=== PATIENT | female | born 1970 | race Caucasian/White ===

== ENCOUNTER 2019-09-08 10:59 | Inpatient (IN) | payer MEDICAID, SELFPAY ==
[2019-09-08 11:00] VITALS: BP 130/83; PULSE 71; RESP 18; TEMP 36.9; O2SAT 100; BMI 22.3
[2019-09-08 11:12] VITALS: BP 140/84; PULSE 72; RESP 16; O2SAT 100
[2019-09-08 11:18] LABS: Basophils # 0.1 10^3/uL (0.0-0.1); Basophils % 0.7 %; Eosinophils # 0.2 10^3/uL (0.0-0.8); Eosinophils % 2.2 %; Hemoglobin 13.7 g/dL (11.5-15.3); Lymphocytes # 2.8 10^3/uL (0.8-4.8); Lymphocytes % 31.5 %; Mean Corpuscular HGB Conc 31.9 g/dL (30.0-36.0); Mean Corpuscular Hemoglobin 29.3 pg (28.0-34.0); Mean Corpuscular Volume 92.1 fL (81-99); Mean Platelet Volume 9.6 fL (7.4-10.4); Monocytes # 0.7 10^3/uL (0.2-0.9); Monocytes % 8.2 %; Neutrophils # 5.1 10^3/uL (1.8-7.7); Nucleated Red Blood Cells % 0 %; Platelet Count 351 10^3/cmm (130-400); Red Blood Count 4.67 10^6/uL (4.1-5.3); Red Cell Distribution Width 13.4 % (12.1-15.1)
--- NOTE | 2019-09-08 11:31 | ED_ITS ---
HPI - Psych General: Chief Complaint: Psychiatric Symptoms Stated Complaint: SI NO PLAN Source: patient Mode of arrival: EMS Limitations: no limitations History of Present Illness: HPI Narrative: 49-year-old female patient who presents to the emergency department with suicidal ideations. She says for the last week or so she has been having visual hallucinations and is unable to tell what is real and what is not. She had been taking methamphetamine but has stopped about a week ago. She is depressed and would like some help. MD complaint: suicidal ideation and feels depressed Duration: constant and getting worse Exacerbating factors: drug use Context: recent drug abuse (Methamphetamine) Associated psychiatric symptoms: depression, suicidal ideation and visual hallucinations Treatments prior to arrival: none If self harm: admits thoughts of self harm Review of Systems General: Reports: 10 or more systems reviewed and unremarkable except in HPI and below Const: Denies: fever(s), chills or body aches Eyes: Denies: change in vision or blurry vision ENMT: Denies: throat pain, enlarged tonsils, odynophagia, hoarseness, mouth pain or swelling of lips/tongue Card: Denies: palpitations, irregular heart rhythm, edema or swelling of feet/ankles Resp: Denies: dyspnea, productive cough or non-productive cough GI: Denies: abdominal pain, nausea or vomiting : Denies: flank pain, difficulty voiding, dysuria, urinary frequency, urinary urgency or urinary hesitancy Musc: Denies: neck pain, back pain or extremity swelling Skin/Breast: Denies: rash, pruritus or erythema Neuro: Denies: headache(s), numbness in extremities or weakness in extremities Endo: Denies: polyuria, polydipsia or tired all the time [facility] ED PFSH: Social History (Updated 09/08/19 @ 09:43 by Em Mcdonnell LPN) Smoking and tobacco status: current every day smoker Alcohol intake: unknown Desire information about substance/drug rehabilitation?: Yes Last substance use date: 09/04/19 Other details last substance use: meth Physical Exam Const: COMMON NORMALS: no acute distress, average body habitus, patient oriented x3, no limitations, healthy appearing, alert and well nourished HENMT: COMMON NORMALS: normocephalic, atraumatic and moist oral mucous me mbranes HEAD & SCALP: normocephalic and atraumatic Neck/C-Spine: COMMON NORMALS: no JVD Chest: COMMONS NORMALS: normal inspection of the chest and normal palpation of entire chest wall Resp: COMMON NORMALS: normal respiratory effort, No retractions, No use of accessory muscles, clear to auscultation bilaterally and percussion normal AUSCULTATION: clear to auscultation bilaterally PERCUSSION: percussion normal Cardio: COMMON NORMALS: no JVD, regular rate, regular rhythm, S1 normal heart sound present, S2 normal heart sound present, No gallops present (Cardio), No clicks present (Cardio), No murmurs present (Cardio), No rub (Cardio) and Peripheral pulses 2+ throughout RATE: regular rate RHYTHM: regular rhythm HEART SOUNDS: S1 normal heart sound present and S2 normal heart sound present PERIPHERAL PULSES: Peripheral pulses 2+ throughout GI: COMMON NORMALS: Normal to inspection, nondistended, normoactive bowel sounds present, Soft to palpation, non-tender, No hepatosplenomegaly present, no masses and no bruits PALPATION: Yes Soft to palpation and Yes No hepatosplenomegaly present : COMMON NORMALS: Yes no CVA tenderness BLADDER/KIDNEY EXAM: Yes no CVA tenderness Back/Pelvis: COMMON NORMALS: no CVA tenderness Extremity: COMMON NORMALS: normal to inspection, full ROM, capillary refill normal, no calf tenderness and no pedal edema Neuro: COMMON NORMALS: patient oriented x3 SENSORIUM/ORIENTATION: Yes alert Psych: COMMON NORMALS: cooperative APPEARANCE: Yes grossly normal ATTITUDE: Yes calm SPEECH: Yes slow MOOD & AFFECT: Yes depressed mood MDM - Psych MDM Narrative: Medical decision making narrative: 49-year-old female patient who presents with suicidal ideation. She is also having visual hallucination. She has been medically cleared and is being admitted to the neuropsychiatric unit for further evaluation and management. Lab Data: Labs: Lab Results 09/08/19 09/08/19 09/08/19 Range/Units 11:12 11:12 11:12 WBC 9.0 (4.0-10.0) 10^3/ uL RBC 4.67 (4.1-5.3) 10^6/u L Hgb 13.7 (11.5-15.3) g/dL Hct 43.0 (37.0-47.0) % MCV 92.1 (81-99) fL MCH 29.3 (28.0-34.0) pg MCHC 31.9 (30.0-36.0) g/dL RDW 13.4 (12.1-15.1) % Plt Count 351 (130-400) 10^3/c mm MPV 9.6 (7.4-10.4) fL Neut % (Auto) 57.0 % Lymph % (Auto) 31.5 % [place] % (Auto) 8.2 % Eos % (Auto) 2.2 % Baso % (Auto) 0.7 % Neut # (Auto) 5.1 (1.8-7.7) 10^3/u L Lymph # (Auto) 2.8 (0.8-4.8) 10^3/u L [place] # (Auto) 0.7 (0.2-0.9) 10^3/u L Eos # (Auto) 0.2 (0.0-0.8) 10^3/u L Baso # (Auto) 0.1 (0.0-0.1) 10^3/u L Nucleated RBC % (a uto) 0 % Nucleated RBCs # 0.0 /100WBC Sodium 139 (136-145) mmol/L Potassium 3.8 (3.5-5.1) mmol/L Chloride 102 (98-107) mmol/L Carbon Dioxide 28 (22-29) mmol/L Anion Gap 12.8 (5-19) BUN 10 (6-20) mg/dL Creatinine 0.6 (0.5-0.9) mg/dL GFR Calculation 106.7 (90-130) mL/min Glucose 72 (65-115) mg/dL Calculated Osmolal ity 283 L (285-295) mOsm/k g Calcium 8.8 (8.5-10.5) mg/dL Total Bilirubin 0.2 (0.15-1.2) mg/dL AST 15 (0-32) U/L ALT 13 (0-33) U/L Alkaline Phosphata se 48 (35-105) IU/L Total Protein 6.4 L (6.6-8.7) g/dL Albumin 4.2 (3.5-5.2) g/dL Globulin 2.2 (1.3-4.6) g/dL HCG, Qual Negative (Negative) Urine Color (Yellow) Urine Appearance (CLEAR) Urine pH (5-7) Ur Specific Gravit y (1.005-1.030) Urine Protein (Negative) Urine Glucose (UA) (Normal) Urine Ketones (Negative) Urine Blood (Negative) Urine Nitrate (Negative) Urine Bilirubin (NEGATIVE) Urine Urobilinogen (Negative) mg/dL Ur Leukocyte Fabi ase (Negative) Salicylates < 0.3 L (3-10) mg/dL Urine Opiates Scre en (Negative) ng/mL Acetaminophen < 5.0 L (10-30) ug/mL Ur Barbiturates Sc reen (Negative) ng/mL Ur Phencyclidine S crn (Negative) ng/mL Ur Amphetamines Sc reen (Negative) ng/mL U Benzodiazepines Scrn (Negative) ng/mL Urine Cocaine Scre en (Negative) ng/mL U Marijuana (THC) Screen (Negative) ng/mL Ethyl Alcohol < 10 (0-10) mg/dL 09/08/19 09/08/19 Range/Units 14:53 14:53 WBC (4.0-10.0) 10^3/ uL RBC (4.1-5.3) 10^6/u L Hgb (11.5-15.3) g/dL Hct (37.0-47.0) % MCV (81-99) fL MCH (28.0-34.0) pg MCHC (30.0-36.0) g/dL RDW (12.1-15.1) % Plt Count (130-400) 10^3/c mm MPV (7.4-10.4) fL Neut % (Auto) % Lymph % (Auto) % [place] % (Auto) % Eos % (Auto) % Baso % (Auto) % Neut # (Auto) (1.8-7.7) 10^3/u L Lymph # (Auto) (0.8-4.8) 10^3/u L [place] # (Auto) (0.2-0.9) 10^3/u L Eos # (Auto) (0.0-0.8) 10^3/u L Baso # (Auto) (0.0-0.1) 10^3/u L Nucleated RBC % (a uto) % Nucleated RBCs # /100WBC Sodium (136-145) mmol/L Potassium (3.5-5.1) mmol/L Chloride (98-107) mmol/L Carbon Dioxide (22-29) mmol/L Anion Gap (5-19) BUN (6-20) mg/dL Creatinine (0.5-0.9) mg/dL GFR Calculation (90-130) mL/min Glucose (65-115) mg/dL Calculated Osmolal ity (285-295) mOsm/k g Calcium (8.5-10.5) mg/dL Total Bilirubin (0.15-1.2) mg/dL AST (0-32) U/L ALT (0-33) U/L Alkaline Phosphata se (35-105) IU/L Total Protein (6.6-8.7) g/dL Albumin (3.5-5.2) g/dL Globulin (1.3-4.6) g/dL HCG, Qual (Negative) Urine Color Yellow (Yellow) Urine Appearance Hazy A (CLEAR) Urine pH 9 H (5-7) Ur Specific Gravit y 1.015 (1.005-1.030) Urine Protein Neg (Negative) Urine Glucose (UA) Norm (Normal) Urine Ketones Negative (Negative) Urine Blood Neg (Negative) Urine Nitrate Negative (Negative) Urine Bilirubin Neg (NEGATIVE) Urine Urobilinogen Norm (Negative) mg/dL Ur Leukocyte Fabi ase Negative (Negative) Salicylates (3-10) mg/dL Urine Opiates Scre en Negative (Negative) ng/mL Acetaminophen (10-30) ug/mL Ur Barbiturates Sc reen Negative (Negative) ng/mL Ur Phencyclidine S crn Negative (Negative) ng/mL Ur Amphetamines Sc reen Negative (Negative) ng/mL U Benzodiazepines Scrn Negative (Negative) ng/mL Urine Cocaine Scre en Negative (Negative) ng/mL U Marijuana (THC) Screen Positive H (Negative) ng/mL Ethyl Alcohol (0-10) mg/dL Discharge Plan Discharge Patient Disposition: Admitted As Inpatient Admit Provider: Rodrigo Correia Clinical Impression: Suicidal ideation, Hallucinations, visual Condition: Stable Coding Level of Care Code ED Lead Sustainability Specialist for Chg Fwd Exam Comprehensive
[2019-09-08 11:33] LABS: HCG, Serum Qual Negative (Negative)
[2019-09-08 11:34] LABS: Alanine Aminotransferase 13 U/L (0-33); Albumin Level 4.2 g/dL (3.5-5.2); Alkaline Phosphatase 48 IU/L (35-105); Anion Gap 12.8 (5-19); Aspartate Amino Transferase 15 U/L (0-32); Blood Urea Nitrogen 10 mg/dL (6-20); Calcium 8.8 mg/dL (8.5-10.5); Carbon Dioxide 28 mmol/L (22-29); Chloride 102 mmol/L (98-107); Globulin 2.2 g/dL (1.3-4.6); Glomerular Filtration Rate 106.7 mL/min (90-130); Glucose 72 mg/dL (65-115); Osmolality Calculated 283 mOsm/kg (285-295); Potassium 3.8 mmol/L (3.5-5.1); Sodium 139 mmol/L (136-145); Total Bilirubin 0.2 mg/dL (0.15-1.2); Total Protein 6.4 g/dL (6.6-8.7)
[2019-09-08 11:40] LABS: Acetaminophen < 5.0 ug/mL (10-30); Alcohol Level < 10 mg/dL (0-10); Salicylate < 0.3 mg/dL (3-10)
[2019-09-08] MEDS: ondansetron 4 MG Tablet PO (14:36)
[2019-09-08] MEDS: LORazepam 1 mg Tablet PO (14:44)
--- NOTE | 2019-09-08 14:53 | PC.NURSE ---
Second urine sample collected and sent to lab. Lab reported the first urine sample was not in lab. Alexa from lab reported the first urine sample was set in the window at the same time the blood was set in the window in lab.
[2019-09-08 14:59] LABS: Add Urine Microscopic? NO
[2019-09-08 15:02] LABS: Bilirubin Urine Neg (NEGATIVE); Blood Urine Neg (Negative); Glucose Urine UA Norm (Normal); Ketones Urine Negative (Negative); Leukocyte Esterase Urine Negative (Negative); Nitrate Urine Negative (Negative); Protein Urine Neg (Negative); Specific Gravity, Urine 1.015 (1.005-1.030); Urine Appearance Hazy (CLEAR); Urine Color Yellow (Yellow); Urobilinogen Urine Norm (Negative); pH Urine 9 (5-7)
[2019-09-08 15:10] LABS: Amphetamines Screen Urine Negative (Negative); Barbiturates Screen Urine Negative (Negative); Benzodiazepines Screen Urine Negative (Negative); Cocaine Screen Urine Negative (Negative); Opiate Screen Urine Negative (Negative); PCP Screen Urine Negative (Negative); THC Screen Urine Positive (Negative)
[2019-09-08 15:37] VITALS: BP 125/83; PULSE 72; RESP 18; TEMP 36.9; O2SAT 99
[2019-09-08 16:02] VITALS: BP 119/86; PULSE 71; RESP 18; O2SAT 100
[2019-09-08] MEDS: hyDROXYzine 25 mg Capsule 50 MG PO (20:43)
[2019-09-08 21:33] VITALS: BP 111/75; PULSE 71; RESP 20; TEMP 36.9; O2SAT 100
[2019-09-08] MEDS: loperamide 2 mg Capsule PO (22:42)
[2019-09-08] MEDS: trazodone 50 mg Tablet PO (22:42)
[2019-09-09 06:00] VITALS: BP 101/67; PULSE 74; RESP 19; TEMP 36.7; O2SAT 98
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
[2019-09-09 13:23] VITALS: BP 96/62; PULSE 71; RESP 18; TEMP 37.2; O2SAT 97
[2019-09-09] MEDS: hyDROXYzine 25 mg Capsule 50 MG PO ×2 (14:35→20:47)
[2019-09-09] MEDS: nicotine 2 mg Gum BUCCAL (14:36)
--- NOTE | 2019-09-09 14:36 | PC.NURSE ---
Addendum entered by Ruthie Mckee LPN 09/09/19 17:14: prn med effective no further c/o anxiety Original Note: PRN VISTARIL 50 MG GIVEN PO PER PT C/O ANXIETY
[2019-09-09 19:39] VITALS: BP 94/65; PULSE 86; RESP 20; TEMP 37.1; O2SAT 97
[2019-09-09] MEDS: acetaminophen 325 mg Tablet 650 MG PO (20:47)
[2019-09-09 21:29] VITALS: BP 94/65; PULSE 86; RESP 20; TEMP 37.1; O2SAT 97
[2019-09-10 06:00] VITALS: BP 100/66; PULSE 78; RESP 20; TEMP 36.9; O2SAT 98
[2019-09-10] MEDS: hyDROXYzine 25 mg Capsule 50 MG PO ×2 (08:33→14:44)
[2019-09-10] MEDS: fluoxetine 20 mg Capsule PO (08:33)
--- NOTE | 2019-09-10 08:34 | PC.NURSE ---
Addendum entered by Ruthie Mckee LPN 09/10/19 10:13: PRN MED EFFECTIVE NO FURTHER C/O ANXIETY Original Note: PRN VISTARIL 50 MG GIVEN PO PER PT C/O ANXIETY
[2019-09-10] MEDS: nicotine 21 mg Patch 1 PATCH TRANSDERMA (08:56)
[2019-09-10] MEDS: acetaminophen 325 mg Tablet 650 MG PO ×3 (10:16→20:01)
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
[2019-09-10 13:56] VITALS: BP 116/80; PULSE 87; RESP 18; TEMP 36.9; O2SAT 99
--- NOTE | 2019-09-10 14:46 | PC.NURSE ---
PT ASKING FOR MEDICATION FOR ANXIETY. ADMINISTERED VISTARIL PRN ORDERED. WILL CONT TO MONITOR AND FOLLOW UP NEEDED.
[2019-09-10] MEDS: OLANZapine 5 mg ODT PO (20:05)
[2019-09-10 21:17] VITALS: RESP 30
[2019-09-11 06:00] VITALS: BP 102/70; PULSE 82; RESP 21; TEMP 36.8; O2SAT 99
[2019-09-11] MEDS: hyDROXYzine 25 mg Capsule 50 MG PO ×2 (08:23→22:08)
[2019-09-11] MEDS: acetaminophen 325 mg Tablet 650 MG PO (08:23)
[2019-09-11] MEDS: fluoxetine 20 mg Capsule PO (08:24)
[2019-09-11] MEDS: nicotine 21 mg Patch 1 PATCH TRANSDERMA (10:03)
[2019-09-11] MEDS: hydrocortisone 1% cream 28 gm 1 APPLIC TOPICAL (10:04)
[2019-09-11] MEDS: gabapentin 100 mg Capsule PO ×3 (12:54→22:08)
[2019-09-11] MEDS: citalopram 20 mg Tablet 10 MG PO (12:54)
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
[2019-09-11 14:00] VITALS: BP 121/80; PULSE 93; RESP 20; TEMP 36.6
[2019-09-11 22:00] VITALS: BP 133/86; PULSE 89; RESP 17; TEMP 36.7; O2SAT 98
[2019-09-11] MEDS: doxepin 10 mg Capsule PO (22:07)
[2019-09-11] MEDS: OLANZapine 5 mg ODT PO (23:10)
[2019-09-12 06:00] VITALS: BP 97/65; PULSE 73; RESP 16; TEMP 36.6; O2SAT 98
[2019-09-12] MEDS: citalopram 20 mg Tablet PO (08:57)
[2019-09-12] MEDS: gabapentin 100 mg Capsule PO ×2 (08:57→14:12)
[2019-09-12] MEDS: hyDROXYzine 25 mg Capsule 50 MG PO ×2 (08:57→15:04)
[2019-09-12] MEDS: citalopram 20 mg Tablet 10 MG PO (08:57)
--- NOTE | 2019-09-12 08:58 | PC.NURSE ---
PRN VISTARIL 50 MG GIVEN PO PER PT C/O STATED ANXIETY. PT HAD TO BE WOKEN UP TO TAKE SCHEDULED MORNING MEDICATIONS. WILL CONT TO MONITOR.
[2019-09-12] MEDS: nicotine 21 mg Patch 1 PATCH TRANSDERMA (14:14)
--- NOTE | 2019-09-12 15:05 | NUR.SHIFT ---
PRN VISTARIL 50 MG GIVEN PO PER PT C/O ANXIETY. NO OUTWARD S/S OF ANXIETY NOTED. WILL CONT TO MONITOR
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
[2019-09-12 16:34] VITALS: BP 97/65; PULSE 73; RESP 16; TEMP 36.6; O2SAT 98
== END 2019-09-12 16:40 | disposition home or self-care (01) | DRG 881 ==
LOC: ER 11:45 → NP 16:03
PROVIDERS: Family Medicine; Physician Assistant; Admitting Provider Psychiatry & Neurology Psychiatry; Family Provider Family Medicine; PCP Family Medicine; Visit Provider Psychiatry & Neurology Psychiatry
DX: F32.9 Major depressive disorder, single episode, unspecified (principal); R45.851 Suicidal ideations; K44.9 Diaphragmatic hernia without obstruction or gangrene; M79.7 Fibromyalgia; K21.9 Gastro-esophageal reflux disease without esophagitis; J45.909 Unspecified asthma, uncomplicated; F17.210 Nicotine dependence, cigarettes, uncomplicated; F12.10 Cannabis abuse, uncomplicated; Z59.0 Homelessness
CPT/HCPCS: 12345; 36415; 80053; 80306; 80307; 81003; 84703; 85025; 99284; Q0162